=== PATIENT | male | born 1995 | race Caucasian/White ===

== ENCOUNTER 2018-11-03 22:26 | Emergency (ER) | payer OTHER ==
[2018-11-03 22:32] VITALS: TEMP 98.9
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
--- NOTE | 2018-11-03 23:48 | CT ---
EXAM: CT Head Without Intravenous Contrast CLINICAL HISTORY: ITS.REASON CT Reason: Pain TECHNIQUE: Axial computed tomography images of the head/brain without intravenous contrast. CTDI is 46 mGy and DLP is 1268 mGy-cm. This CT exam was performed using one or more of the following dose reduction techniques: automated exposure control, adjustment of the mA and/or kV according to patient size, and/or use of iterative reconstruction technique. COMPARISON: No relevant prior studies available. FINDINGS: Brain: No hemorrhage, large hypodensity, or mass effect. Ventricles: No hydrocephalus. Bones/joints: Mildly fracture nasal bone. Soft tissues: Unremarkable. Sinuses: Unremarkable. Mastoid air cells: Clear. IMPRESSION: No acute hemorrhage, hydrocephalus, or mass effect. Mildly fractured nasal bone.
--- NOTE | 2018-11-03 23:50 | CT ---
EXAM: CT Head Without Intravenous Contrast CT Maxillofacial Without Intravenous Contrast CLINICAL HISTORY: ITS.REASON CT Reason: Pain TECHNIQUE: Axial computed tomography images of the head/brain and face without intravenous contrast. CTDI is 45 mGy and DLP is 1267 mGy-cm. This CT exam was performed using one or more of the following dose reduction techniques: automated exposure control, adjustment of the mA and/or kV according to patient size, and/or use of iterative reconstruction technique. COMPARISON: No relevant prior studies available. IMPRESSION: Bilateral nasal bone and nasal spine fractures with leftward deviation of the nose. Remaining facial bones are intact. Soft tissues of the orbits are intact.
[2018-11-03 23:58] VITALS: BP 123/88; PULSE 98; RESP 18
[2018-11-04] MEDS ORDERED: ACET/COD 300 MG/30 MG STARTER PACK 6 TAB BTL PO STA (00:09)
[2018-11-04] MEDS ORDERED: IBUPROFEN 600 MG STARTER PACK 4 TAB BTL PO STA (00:10)
[2018-11-04] MEDS ORDERED: CLINDAMYCIN 150 MG CAP PO STA ×2 (00:12→00:48)
== END 2018-11-04 00:50 | disposition home or self-care (01) ==
LOC: EC 22:26
DX: S02.2XXA Fracture of nasal bones, initial encounter for closed fracture (principal); F17.200 Nicotine dependence, unspecified, uncomplicated; Z88.0 Allergy status to penicillin; Y04.0XXA Assault by unarmed brawl or fight, initial encounter; Z53.8 Procedure and treatment not carried out for other reasons
CPT/HCPCS: 70450; 70486; 99284